=== PATIENT | male | born 1985 | race Caucasian/White ===

== ENCOUNTER 2019-11-27 09:05 | Emergency (ER) | payer MEDICAID, OTHER ==
[~2019-11-27] VITALS: Ht 172.7 cm; Wt 70.5 kg
[2019-11-27] MEDS ORDERED: TETanus/Pertussis (Acell)/Diphther VAC/PF (Tdap-Adult) 0.5ml syringe IMVAC ONE (10:15)
[2019-11-27 10:42] VITALS: BP 14/90
[2019-11-27] MEDS ORDERED: SULF1TAB49 PO (10:53)
[2019-11-27] MEDS ORDERED: LACT1CAP75 PO (10:54)
--- NOTE | 2019-11-27 15:50 | NUR ---
CALLED IN RX TO [facility] FOR BACTRIM DS AND PROBIOTIC. BACTRIM 1 TAB Q 12 HOURS X 10 DAYS FOR #20,,, PHARMACIST STATED SHE WOULD TELL PT. TO BUY PROBIOTIC OVER THE COUNTER.
== END 2019-11-27 11:06 | disposition home or self-care (01) ==
LOC: ER 09:06
DX: S41.152A Open bite of left upper arm, initial encounter (principal); Z98.52 Vasectomy status; W54.0XXA Bitten by dog, initial encounter; Y93.89 Activity, other specified; Y92.89 Other specified places as the place of occurrence of the external cause; Y99.8 Other external cause status
CPT/HCPCS: 73060; 90715; 99283

== ENCOUNTER 2020-09-15 15:37 | Emergency (ER) | payer MEDICAID, OTHER ==
[~2020-09-15] VITALS: Ht 172.7 cm; Wt 72.7 kg
[~2020-09-15 15:37] MED LIST: LACT1CAP75 PO
[2020-09-15 16:20] VITALS: BP 134/92
[2020-09-15] MEDS ORDERED: AMOX-422 PO (16:45)
[2020-09-15] MEDS ORDERED: LIDOcaine 1% W/epiNEPHrine 1:200,000 10ml vial IJ ONE (17:20)
[2020-09-15] MEDS ORDERED: TETanus/Pertussis (Acell)/Diphther VAC/PF (Tdap-Adult) 0.5ml syringe IMVAC ONE (17:20)
[2020-09-15] MEDS ORDERED: acetaminophen 325mg tablet PO ONE (17:55)
[2020-09-15] MEDS ORDERED: bacitracin 15gm ointment TP ONE (18:10)
[2020-09-15] MEDS ORDERED: IBUP-1985 PO (18:14)
== END 2020-09-15 18:38 | disposition home or self-care (01) ==
LOC: ER 15:39
DX: S40.812A Abrasion of left upper arm, initial encounter (principal); F19.90 Other psychoactive substance use, unspecified, uncomplicated; Z98.890 Other specified postprocedural states; Z72.89 Other problems related to lifestyle; Z60.2 Problems related to living alone; Z79.2 Long term (current) use of antibiotics; Z79.899 Other long term (current) drug therapy; W54.0XXA Bitten by dog, initial encounter; Y93.89 Activity, other specified; Y92.89 Other specified places as the place of occurrence of the external cause; Y99.8 Other external cause status
CPT/HCPCS: 73060; 99284

== ENCOUNTER 2023-05-23 20:10 | Inpatient (IN) | payer MEDICAID, OTHER ==
[~2023-05-23] VITALS: Ht 167.6 cm; Wt 74.8 kg
[~2023-05-23 20:10] MED LIST changes: +IBUP-1985 PO
[2023-05-23] MEDS ORDERED: iohexol 300mg/ml 100ml inj. ONE (20:17)
--- NOTE | 2023-05-23 20:21 | NUR ---
ct collar off per dr bill
[2023-05-23] MEDS ORDERED: normal saline 1000ml 1,000 ML IV ONE (20:25)
[2023-05-23] MEDS ORDERED: HYDROmorphone 1 mg/ml syringe IV ONE ×2 (20:25→22:05)
[2023-05-23 20:42] LABS: BASOPHILS # (AUTO) 0.2 X10'3 (0-0.2); BASOPHILS % (AUTO) 0.6 % (0-1); EOSINOPHILS # (AUTO) 0.1 X10'3 (0-0.9); EOSINOPHILS % (AUTO) 0.3 % (0-6); HEMATOCRIT 48.9 % (42.0-52.0); HEMOGLOBIN 16.5 g/dl (14.0-17.9); LYMPHOCYTES # (AUTO) 3.8 X10'3 (1.1-4.8); LYMPHOCYTES % (AUTO) 12.8 % (21-51); MEAN CORPUSCULAR HEMOGLOBIN 28.8 PG (27.0-31.0); MEAN CORPUSCULAR HGB CONC 33.8 g/dL (33.0-36.5); MEAN PLATELET VOLUME 7.1 FL (7.4-10.4); MONOCYTES # (AUTO) 1.2 X10'3 (0-0.9); MONOCYTES % (AUTO) 4.2 % (2-12); NEUTROPHILS # (AUTO) 24.1 X10'3 (1.8-7.7); NEUTROPHILS % (AUTO) 82.1 % (42-75); PLATELET COUNT 473 X10'3 (140-440); RED BLOOD COUNT 5.75 X10'6 (4.70-6.10); RED CELL DISTRIBUTION WIDTH 13.6 % (11.5-14.5)
[2023-05-23 20:50] LABS: APTT 28 SECONDS (22-32); PROTHROMBIN TIME 10.4 SECONDS (9.0-12.0)
[2023-05-23 20:53] LABS: ALANINE AMINOTRANSFERASE 26 U/L (12-78); ALBUMIN 4.1 G/DL (3.4-5.0); ALBUMIN/GLOBULIN RATIO 0.9 (1.1-1.5); ALKALINE PHOSPHATASE 89 IU/L (46-116); ANION GAP 10 (8-16); ASPARTATE AMINO TRANSFERASE 20 U/L (10-37); BILIRUBIN,TOTAL 0.4 MG/DL (0.1-1.0); BLOOD UREA NITROGEN 13 MG/DL (7-18); CHLORIDE 98 MMOL/L (99-107); CREATININE 1.44 MG/DL (0.60-1.10); GLUCOSE 159 MG/DL (70-104); POTASSIUM 3.6 MMOL/L (3.5-5.1); SODIUM 135 MMOL/L (135-145); TOTAL CARBON DIOXIDE 26.7 MMOL/L (24-32); TOTAL PROTEIN 8.7 G/DL (6.4-8.2); eCRCL 62 ML/MIN; eGFR 55 ML/MIN
[2023-05-23 21:01] LABS: WHITE BLOOD COUNT 29.4 X10'3 (4.5-11.0)
[2023-05-23 21:20] LABS: AMYLASE 26 U/L (25-115); CREATINE KINASE 147 U/L (39-308); ETHANOL < 10 MG/DL (<10); LIPASE 154 U/L (73-393)
[2023-05-23 21:30] LABS: TOTAL CELLS COUNTED 100
[2023-05-23 21:31] LABS: PLATELET ESTIMATE INCREASED
[2023-05-23] MEDS ORDERED: TETanus/Pertussis (Acell)/Diphther VAC/PF (Tdap-Adult) 0.5ml syringe IMVAC ONE (21:45)
[2023-05-23] MEDS ORDERED: LIDOcaine 1% W/epiNEPHrine 1:100,000 20ml vial IJ ONE (21:47)
[2023-05-23 22:05] LABS: BILIRUBIN,URINE NEGATIVE (Neg); CLARITY,URINE CLEAR (Clear); COLOR,URINE YELLOW (Yellow); GLUCOSE, URINE NEGATIVE (Neg); KETONES,URINE NEGATIVE (Neg); LEUKOCYTE ESTERASE ,URINE NEGATIVE (Neg); NITRITES, URINE NEGATIVE (Neg); OCCULT BLOOD,URINE NEGATIVE (Neg); PROTEIN,URINE TRACE mg/dl (Neg); UROBILINOGEN,URINE 0.2 E.U/dL (0.2-1.0)
[2023-05-23 22:07] LABS: UA COLLECTION TYPE CLN CATCH MIDSTREAM
[2023-05-23 22:18] LABS: BACTERIA,URINE NONE SEEN /HPF (Neg); RBC,URINE 0-2 /HPF (0-2); URINE AMPHETAMINE SCREEN POSITIVE (Neg); URINE BARBITUATE SCREEN NEGATIVE (Neg); URINE BENZODIAZEPINES SCREEN NEGATIVE (Neg); URINE CANNABINOID SCREEN POSITIVE (Neg); URINE COCAINE SCREEN NEGATIVE (Neg); URINE METHADONE SCREEN NEGATIVE (Neg); URINE OPIATE SCREEN POSITIVE (Neg); URINE PHENCYCLIDINE SCREEN NEGATIVE (Neg); WBC,URINE 0-4 /HPF (0-4)
[2023-05-23 22:20] LABS: CAL OXALATE CRYSTALS 2+ /HPF (NEGATIVE); HYALINE CASTS 0-3 /LPF (NEGATIVE); MUCUS STRANDS MANY /LPF (Neg); SQUAMOUS EPITHELIAL CELL,UR FEW /LPF (FEW)
[2023-05-24] MEDS ORDERED: HYDROmorphone 1 mg/ml syringe IV PRN (00:55)
[2023-05-24] MEDS ORDERED: acetaminophen 325mg tablet PO PRN ×2 (01:00)
[2023-05-24] MEDS ORDERED: magnesium hydroxide 30ml (MOM) UD suspension PO PRN (01:00)
[2023-05-24] MEDS ORDERED: diphenhydrAMINE 50 mg/ml inj IV PRN (01:00)
[2023-05-24] MEDS ORDERED: metoclopramide 5 mg/ml inj IV PRN (01:00)
[2023-05-24] MEDS ORDERED: acetaminophen 650mg rectal suppository RC PRN (01:00)
[2023-05-24] MEDS ORDERED: ondansetron 4mg rapidly disintigrating tab PO PRN (01:00)
[2023-05-24] MEDS ORDERED: ondansetron/PF 4mg/2ml inj IV PRN (01:00)
[2023-05-24] MEDS ORDERED: morphine 2 MG/ML inj. syringe IV PRN ×2 (01:00)
[2023-05-24] MEDS ORDERED: HYDROcodone/acetaminophen 5mg/325mg tablet PO PRN (01:00)
[2023-05-24] MEDS ORDERED: diphenhydrAMINE 25mg capsule PO PRN (01:00)
[2023-05-24] MEDS ORDERED: bisacodyl 10mg suppository rectal RC PRN (01:00)
[2023-05-24] MEDS ORDERED: mag hydrox/Alum hydrox/simeth 30ml oral suspension PO PRN (01:00)
[2023-05-24] MEDS: dextrose 5%-1/2 normal saline 1,000 ML IV SCH ×3 (01:44→22:09)
[2023-05-24 02:27] LABS: HEMOGLOBIN A1C 5.8 % (4.5-6.2)
[2023-05-24 02:39] LABS: APTT 29 SECONDS (22-32); PROTHROMBIN TIME 10.3 SECONDS (9.0-12.0)
[2023-05-24 02:40] LABS: MAGNESIUM 1.8 MG/DL (1.5-2.4); PHOSPHORUS 3.7 MG/DL (2.3-4.5); PRO BRAIN NATRIURETIC PEPTIDE < 30 PG/ML (0-125); THYROID STIMULATING HORMONE 2.68 ulU/ml (0.34-4.50)
[2023-05-24] MEDS: HYDROmorphone inj. 0.5 MG/0.5 ML DISP.SYRIN IV PRN ×3 (02:52→11:15)
[2023-05-24] MEDS: HYDROcodone/acetaminophen 10/325mg tab PO PRN ×3 (02:52→16:39)
[2023-05-24] MEDS ORDERED: IBUP-1985 PO (05:26)
--- NOTE | 2023-05-24 06:23 | NUR ---
recieved report from Tosha RN assuming care of pt
[2023-05-24] MEDS: docusate sod 100mg capsule PO SCH ×2 (06:51→21:56)
[2023-05-24] MEDS: pantoprazole 40mg Tablet.DR PO SCH (06:54)
[2023-05-24] MEDS: nicotine 21mg patch - 24 hr TD SCH (08:00)
[2023-05-24] MEDS: levoFLOXACIN-Levaquin 500mg/D5 100 ML IV SCH (08:02)
[2023-05-24 11:35] LABS: ALBUMIN 2.9 G/DL (3.4-5.0); ANION GAP 7 (8-16); BLOOD UREA NITROGEN 7 MG/DL (7-18); BUN/CREATININE RATIO 7.1 (10.0-20.0); CHLORIDE 101 MMOL/L (99-107); CREATININE 0.98 MG/DL (0.60-1.10); GLUCOSE 171 MG/DL (70-104); POTASSIUM 3.2 MMOL/L (3.5-5.1); SODIUM 136 MMOL/L (135-145); TOTAL CARBON DIOXIDE 27.7 MMOL/L (24-32); eCRCL 91 ML/MIN; eGFR 85 ML/MIN
[2023-05-24 11:46] LABS: BASOPHILS % (AUTO) 0.2 % (0-1); EOSINOPHILS # (AUTO) 0.1 X10'3 (0-0.9); HEMATOCRIT 42.7 % (42.0-52.0); LYMPHOCYTES # (AUTO) 1.8 X10'3 (1.1-4.8); LYMPHOCYTES % (AUTO) 13.1 % (21-51); MEAN CORPUSCULAR HEMOGLOBIN 28.1 PG (27.0-31.0); MEAN CORPUSCULAR HGB CONC 32.7 g/dL (33.0-36.5); MEAN CORPUSCULAR VOLUME 86.1 FL (78-98); MONOCYTES # (AUTO) 0.8 X10'3 (0-0.9); MONOCYTES % (AUTO) 5.9 % (2-12); NEUTROPHILS # (AUTO) 11.1 X10'3 (1.8-7.7); NEUTROPHILS % (AUTO) 79.8 % (42-75); PLATELET COUNT 349 X10'3 (140-440); RED BLOOD COUNT 4.97 X10'6 (4.70-6.10); RED CELL DISTRIBUTION WIDTH 13.4 % (11.5-14.5); WHITE BLOOD COUNT 13.8 X10'3 (4.5-11.0)
[2023-05-24] MEDS ORDERED: HYDROmorphone inj. 0.5 MG/0.5 ML DISP.SYRIN IV ONE (12:55)
[2023-05-24] MEDS ORDERED: HYDROcodone/acetaminophen 10/325mg tab PO ONE (12:55)
[2023-05-24] MEDS: HYDROmorphone 1 mg/ml syringe IV PRN ×3 (13:02→21:59)
--- NOTE | 2023-05-24 13:03 | NUR ---
surgeon at bedside discussing plan of care
--- NOTE | 2023-05-24 19:30 | NUR ---
Received report from ED RNYashira
[2023-05-24 20:15] VITALS: BP 124/88; PULSE 102; RESP 20; TEMP 96.8; O2SAT 98
[2023-05-24 22:00] VITALS: BP 125/88; PULSE 121; RESP 18; TEMP 98.1; O2SAT 98
[2023-05-25] MEDS: HYDROcodone/acetaminophen 10/325mg tab PO PRN ×3 (00:22→09:25)
[2023-05-25 02:00] VITALS: BP 122/90; PULSE 110; RESP 16; TEMP 97.8; O2SAT 98
[2023-05-25] MEDS: HYDROmorphone 1 mg/ml syringe IV PRN ×3 (02:32→11:39)
--- NOTE | 2023-05-25 06:30 | NUR ---
Problems reprioritized. Patient report given, questions answered & plan of care reviewed with SANCHO Blake.
[2023-05-25 07:00] VITALS: BP 110/74; PULSE 87; RESP 18; TEMP 97.8; O2SAT 96
[2023-05-25] MEDS: dextrose 5%-1/2 normal saline 1,000 ML IV SCH (07:00)
--- NOTE | 2023-05-25 07:04 | NUR ---
Patient in room PCU 3024. I have received report from Annamaria KINGSLEY and had the opportunity to ask questions and assume patient care.
[2023-05-25 07:42] LABS: BASOPHILS % (AUTO) 0.4 % (0-1); EOSINOPHILS # (AUTO) 0.2 X10'3 (0-0.9); EOSINOPHILS % (AUTO) 1.5 % (0-6); HEMATOCRIT 42.4 % (42.0-52.0); HEMOGLOBIN 14.1 g/dl (14.0-17.9); LYMPHOCYTES # (AUTO) 2.6 X10'3 (1.1-4.8); LYMPHOCYTES % (AUTO) 19.9 % (21-51); MEAN CORPUSCULAR HEMOGLOBIN 28.7 PG (27.0-31.0); MEAN CORPUSCULAR HGB CONC 33.3 g/dL (33.0-36.5); MEAN CORPUSCULAR VOLUME 86.2 FL (78-98); MEAN PLATELET VOLUME 7.3 FL (7.4-10.4); MONOCYTES # (AUTO) 0.9 X10'3 (0-0.9); MONOCYTES % (AUTO) 6.8 % (2-12); NEUTROPHILS # (AUTO) 9.2 X10'3 (1.8-7.7); NEUTROPHILS % (AUTO) 71.4 % (42-75); PLATELET COUNT 343 X10'3 (140-440); RED BLOOD COUNT 4.91 X10'6 (4.70-6.10); RED CELL DISTRIBUTION WIDTH 13.7 % (11.5-14.5); WHITE BLOOD COUNT 12.9 X10'3 (4.5-11.0)
[2023-05-25 08:00] VITALS: RESP 18; O2SAT 96
[2023-05-25] MEDS: docusate sod 100mg capsule PO SCH (08:00)
[2023-05-25] MEDS: nicotine 21mg patch - 24 hr TD SCH (08:00)
[2023-05-25 08:25] LABS: ALANINE AMINOTRANSFERASE 18 U/L (12-78); ALBUMIN 2.8 G/DL (3.4-5.0); ALBUMIN/GLOBULIN RATIO 0.8 (1.1-1.5); ALKALINE PHOSPHATASE 71 IU/L (46-116); ANION GAP 8 (8-16); ASPARTATE AMINO TRANSFERASE 18 U/L (10-37); BILIRUBIN,TOTAL 0.5 MG/DL (0.1-1.0); BLOOD UREA NITROGEN 4 MG/DL (7-18); BUN/CREATININE RATIO 4.4 (10.0-20.0); CALCIUM 8.4 MG/DL (8.5-10.1); CHLORIDE 102 MMOL/L (99-107); CHOL/HDL RATIO 2.8 (0.00-4.99); CHOLESTEROL 117 MG/DL (0-200); CREATININE 0.91 MG/DL (0.60-1.10); GLUCOSE 108 MG/DL (70-104); HDL CHOLESTEROL 42 MG/DL (35-60); LDL CHOLESTEROL 61 MG/DL (50-100); POTASSIUM 3.9 MMOL/L (3.5-5.1); SODIUM 137 MMOL/L (135-145); TOTAL CARBON DIOXIDE 27.4 MMOL/L (24-32); TOTAL PROTEIN 6.5 G/DL (6.4-8.2); TRIGLYCERIDES 74 MG/DL (20-135); eCRCL 98 ML/MIN; eGFR > 90 ML/MIN
[2023-05-25] MEDS: levoFLOXACIN-Levaquin 500mg/D5 100 ML IV SCH (09:25)
[2023-05-25] MEDS: pantoprazole 40mg Tablet.DR PO SCH (09:25)
[2023-05-25 11:00] VITALS: BP 131/84; PULSE 105; RESP 11; TEMP 97.6; O2SAT 98
[2023-05-25 11:39] VITALS: RESP 15
[2023-05-25] MEDS ORDERED: OXYC-150 PO ×3 (12:34→13:48)
--- NOTE | 2023-05-25 14:14 | NUR ---
Pt was DC'd as per Dr's orders. Pt was insistent on leaving today and Dr gave pain med management and ambulation aids for pt. Pt was unhooked from all tele and IV. Pt will make follow up appointments and fruit picker meds. Pt was educated at bedside with friend and all questions were answered. Pt gathered all belongings and took with them. I wheeled pt down to the lobby in their wheelchair provided to them. Pt left in a private vehicle destined for home.
== END 2023-05-25 14:07 | disposition home or self-care (01) | DRG 342 ==
LOC: ER 20:10 → ED HOLD 05-24 01:05 → EDBD 05-24 01:05 → PCU 3S 05-24 20:00
PROVIDERS: ADMIT Family Medicine; ATTEND Internal Medicine
PROC: 0YQGXZZ Repair Left Knee Region, External Approach (ICD-10-PCS; principal; 2023-05-24)
PROC: 2W3CX1Z Immobilization of Right Lower Arm using Splint (ICD-10-PCS; 2023-05-24)
DX: S62.021A Displaced fracture of middle third of navicular [scaphoid] bone of right wrist, initial encounter for closed fracture (principal); N17.9 Acute kidney failure, unspecified; S81.012A Laceration without foreign body, left knee, initial encounter; M62.82 Rhabdomyolysis; D72.829 Elevated white blood cell count, unspecified; S42.134A Nondisplaced fracture of coracoid process, right shoulder, initial encounter for closed fracture; S62.202A Unspecified fracture of first metacarpal bone, left hand, initial encounter for closed fracture; S52.501A Unspecified fracture of the lower end of right radius, initial encounter for closed fracture; S52.614A Nondisplaced fracture of right ulna styloid process, initial encounter for closed fracture; S92.355A Nondisplaced fracture of fifth metatarsal bone, left foot, initial encounter for closed fracture; S43.101A Unspecified dislocation of right acromioclavicular joint, initial encounter; I12.9 Hypertensive chronic kidney disease with stage 1 through stage 4 chronic kidney disease, or unspecified chronic kidney disease; N18.9 Chronic kidney disease, unspecified; F17.200 Nicotine dependence, unspecified, uncomplicated; F14.10 Cocaine abuse, uncomplicated; F15.129 Other stimulant abuse with intoxication, unspecified; Z79.899 Other long term (current) drug therapy; Z88.6 Allergy status to analgesic agent; Z88.8 Allergy status to other drugs, medicaments and biological substances; Y93.89 Activity, other specified; Y92.89 Other specified places as the place of occurrence of the external cause; Y99.8 Other external cause status; V29.99XA Rider (driver) (passenger) of other motorcycle injured in unspecified traffic accident, initial encounter; Y92.410 Unspecified street and highway as the place of occurrence of the external cause
CPT/HCPCS: 12002; 36415; 70450; 71260; 72125; 73030; 73080; 73110; 73130; 73200; 73564; 73630; 74177; 80048; 80053; 80061; 80305; 80320; 81001; 82150; 82550; 83036; 83605; 83690; 83735; 83874; 83880; 84100; 84443; 84484; 85007; 85025; 85610; 85730; 86885; 86900; 86901; 87040; 87081; 90715; 97161; 97530; 99291; A6212; A6213; A6223; A6258; A6446; A6449; G0378; J1170; J1956; J3490; J7030; Q9967